=== PATIENT | female | born 1965 | race Caucasian/White ===

== ENCOUNTER 2024-11-19 13:20 | Outpatient (CLI) | payer OTHER | END 2024-11-19 13:21 | disposition home or self-care (01) | LOC: CSHLAB 13:20 | PROVIDERS: ATTEND Obstetrics & Gynecology | DX: Z01.818 Encounter for other preprocedural examination (principal); N87.1 Moderate cervical dysplasia | CPT/HCPCS: 80048; 85027; 86850; 86900; 86901; 93005; 93010 ==